=== PATIENT | female | born 2000 | race African-American/Black ===

== ENCOUNTER 2021-01-04 10:37 | Emergency (ER) | payer OTHER ==
[~2021-01-04] VITALS: Ht 157.5 cm; Wt 70.0 kg
[2021-01-04] MEDS ORDERED: HYDROCODONE/ACETAMINOPHEN 5/325MG TABLET PO STA (10:55)
[2021-01-04 11:29] LABS: CLARITY URINE CLEAR (CLEAR); COLOR URINE YELLOW (YELLOW); KETONES URINE NEGATIVE (NEGATIVE); LEUKOCYTE ESTERASE URINE NEGATIVE (NEGATIVE); NITRITE URINE NEGATIVE (NEGATIVE); OCCULT BLOOD URINE TRACE (NEGATIVE); PH URINE 6.5 (4.5-8.0); PROTEIN URINE 2+ (NEGATIVE); SPECIFIC GRAVITY URINE 1.013 (1.005-1.030); UROBILINOGEN URINE 0.2 E.U./dL (0.2-1.0)
[2021-01-04 12:00] LABS: BASOPHILS % 0.8 % (0.0-2.0); EOSINOPHILS % 2.1 % (0.0-5.0); HEMOGLOBIN. 10.8 g/dL (12.0-16.0); LYMPHOCYTES % 25.1 % (20.0-50.0); MEAN CORPUSCULAR HEMOGLOBIN 27.1 pg (28.0-32.0); MEAN CORPUSCULAR VOLUME 82.8 fL (81.0-99.0); MEAN PLATELET VOLUME 8.7 fl (7.4-10.4); MONOCYTES % 7.3 % (2.0-8.0); NEUTROPHILS % 64.7 % (40.0-76.0); PLATELET 268 x1000/uL (130-400); RED BLOOD CELL COUNT 3.99 mill/uL (4.2-5.4); RED CELL DISTRIBUTION WIDTH 12.5 % (11.6-14.6)
[2021-01-04 12:05] LABS: CHLORIDE 111 mEq/L (98-107)
[2021-01-04 12:43] VITALS: BP 129/81
[2021-01-04] MEDS ORDERED: NAPR-681 PO (14:09)
[2021-01-04] MEDS ORDERED: CYCL5TAB MT (14:09)
[2021-01-04] MEDS ORDERED: CYCL7.5T25 PO (14:35)
[2021-01-04] MEDS ORDERED: IBUP-2030 PO (14:35)
== END 2021-01-04 14:40 | disposition home or self-care (01) ==
LOC: ER 10:37
DX: R10.9 Unspecified abdominal pain (principal); M32.9 Systemic lupus erythematosus, unspecified
CPT/HCPCS: 36415; 71045; 76770; 80053; 81003; 81025; 85025; 99285